=== PATIENT | female | born 1970 | race Caucasian/White ===

== ENCOUNTER 2023-01-31 16:20 | Outpatient (CLI) | payer OTHER, SELFPAY | END 2023-01-31 16:21 | disposition home or self-care (01) | LOC: AMB 03-25 14:46 | PROVIDERS: Visit Provider Family Medicine | DX: S09.90XA Unspecified injury of head, initial encounter (principal); V49.50XA Passenger injured in collision with unspecified motor vehicles in traffic accident, initial encounter; Y92.411 Interstate highway as the place of occurrence of the external cause | CPT/HCPCS: A0425; A0427 ==

== ENCOUNTER 2023-01-31 17:12 | Emergency (ER) | payer OTHER, SELFPAY ==
[2023-01-31] VITALS (16 sets, daily range): BP systolic 129–154; BP diastolic 79–104; PULSE 51–80; RESP 14–23; TEMP 36.8; O2SAT 90–98; BMI 23.8
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
--- NOTE | 2023-01-31 18:00 | ED.NURSE ---
Glass in heel removed by MD with tweezers.
[2023-01-31] MEDS: IBUPROFEN 200 MG TABLET 600 MG PO (18:24)
--- NOTE | 2023-01-31 19:00 | ED.NURSE ---
Pt's abrasions cleansed with saline, hibicleanse, and gauze. Bacitracin applied.
== END 2023-01-31 20:01 | disposition home or self-care (01) ==
PROVIDERS: Emergency Provider Family Medicine
DX: S00.03XA Contusion of scalp, initial encounter (principal); S50.01XA Contusion of right elbow, initial encounter; V43.62XA Car passenger injured in collision with other type car in traffic accident, initial encounter
CPT/HCPCS: 70450; 73080; 76604; 76705; 93308; 94761; 99284; 99285; 99291; A9270; G0390